=== PATIENT | male | born 1955 | race Caucasian/White ===

== ENCOUNTER 2025-04-29 23:59 | Inpatient (IN) | payer MEDICARE ==
[~2025-04-29] VITALS: Ht 188 cm; Wt 101.3 kg
[~2025-04-29 23:59] MED LIST: GINKOBA PO; HORNY GOAT WEED PO; VITAMIN A10000 UNI2 PO; VITAMIN B PO; VITAMIN D PO
[2025-04-30] VITALS (7 sets, daily range): BP systolic 151–184; BP diastolic 101–133
[2025-04-30 00:44] LABS: BASOPHILS ABSOLUTE AUTO 0.06 K/mm3 (0.00-0.23); BASOPHILS PERCENT AUTO 1 % (0-2); EOSINOPHILS ABSOLUTE AUTO 0.33 K/mm3 (0.00-0.68); EOSINOPHILS PERCENT AUTO 5 % (0-6); Hematocrit 46.1 % (37.0-53.0); Hemoglobin 16.3 g/dL (13.5-17.5); IMMATURE GRAN ABSOLUTE AUTO 0.03 K/mm3 (0.00-0.10); IMMATURE GRAN PERCENT AUTO 0 % (0-1); LYMPHOCYTES ABSOLUTE AUTO 1.37 K/mm3 (0.84-5.20); LYMPHOCYTES PERCENT AUTO 20 % (21-46); MONOCYTES ABSOLUTE AUTO 0.77 K/mm3 (0.16-1.47); MONOCYTES PERCENT AUTO 11 % (4-13); Mean Corpuscular HGB Conc 35.4 g/dL (31.5-36.5); Mean Corpuscular Volume 90 fL (80-100); NEUTROPHILS ABSOLUTE AUTO 4.20 K/mm3 (1.96-9.15); NEUTROPHILS PERCENT AUTO 62 % (41-73); NRBC ABSOLUTE 0.00 K/mm3 (0.00-0.02); NRBC Auto 0.0 /100 WBC (0.0-0.2); Platelet Count 231 K/mm3 (150-400); RDW Coefficient Variation 12.3 % (11.7-14.2); RDW Standard Deviation 40.8 fL (35.1-46.3)
[2025-04-30] MEDS ORDERED: NiCARdipine HCL 1,000 MCG/5 ML SYR ONE (00:53)
[2025-04-30] MEDS ORDERED: NS 1,000 ML IV ONE ×2 (00:53→00:55)
[2025-04-30] MEDS ORDERED: NS 250 ML IV ONE (00:53)
[2025-04-30] MEDS ORDERED: FentaNYL Citrate 50 MCG/ML 2 ML Injection ONE (00:55)
[2025-04-30] MEDS ORDERED: Midazolam HCl 1MG / ML 2ML Vial ONE (00:55)
[2025-04-30] MEDS ORDERED: Phenylephrine HCl 100 MCG/ML-NS 10MLSYR (1MG/10ML) ONE (00:56)
[2025-04-30] MEDS ORDERED: Phenylephrine HCl 10mg/ml 1 ml Vial ONE (00:56)
[2025-04-30] MEDS ORDERED: Labetalol HCL 5 MG/ML 4ML Injection (Single Dose) ONE (01:05)
[2025-04-30 01:06] LABS: Alanine Aminotransfer (ALT/SGP 37.0 U/L (12-78); Albumin, Blood 4.0 g/dL (3.4-5.0); Albumin/Globulin Ratio 0.9 (0.8-1.8); Anion Gap 8.0 mmol/L (3-11); Aspartate Aminotrans (AST/SGOT 34.0 U/L (12-37); Bilirubin, Total 1.6 mg/dL (0.1-1.0); Blood Urea Nitrogen 15.0 mg/dL (8-24); CO2, Blood 27.0 mmol/L (21-32); Calcium, Blood 8.9 mg/dL (8.5-10.1); Chloride, Blood 103.0 mmol/L (98-108); Creatinine, Blood 0.86 mg/dL (0.60-1.20); Globulin, Blood 4.3 g/dL (2.2-4.0); Glucose, Blood 131.0 mg/dL (70-99); Potassium, Blood 3.4 mmol/L (3.5-5.5); Sodium, Blood 135.0 mmol/L (136-145); Total Protein, Blood 8.3 g/dL (6.4-8.2)
[2025-04-30] MEDS ORDERED: ERGO400 PO (01:56)
[2025-04-30] MEDS ORDERED: ZINC15 PO (01:56)
[2025-04-30] MEDS ORDERED: FLU VACC TS2025(65UP)/MF59C/PF 45 MCG/0.5 ML SYRINGE IM SCH (02:00)
[2025-04-30] MEDS ORDERED: Morphine Sulfate 4 MG/1 ML Injection IV PRN (02:00)
[2025-04-30] MEDS ORDERED: Ondansetron HCl 2 MG / ML 2ML Vial IV PRN (02:05)
[2025-04-30] MEDS ORDERED: Naloxone HCl 0.4MG / ML 1ML Vial IV PRN (02:05)
[2025-04-30 02:13] LABS: Anti-Xa UFH, PHA Monitoring <0.10 IU/mL; Prothrombin Time Results 11.3 Sec (9.7-11.5)
--- NOTE | 2025-04-30 03:00 | NUR ---
ARRIVAL TO PCU PT ARRIVED TO PCU ROOM 18 AT APPROX 0141 DIRECTLY FROM [employer] [facility] [employer]NAGER, ARRIVES AT BEDSIDE W/ PT. PT DOES NOT HAVE A PCP OR TAKE ANY HOME MEDICATION, HE IS RETIRED AND NORMALLY ACTIVE. HE SHARES W/ ME THAT HE RECENTLY ROOFED HIS WHOLE HOUSE. DENIES ANY DRUG OR ALCOHOL HX, SMOKED FOR A BRIEF TIME BACK IN HIGH [employer]. R RADIAL ACCESS SITE W/ TR BAND IN PLACE 8CC IN THE BAND. SITE FREE OF REDNESS, HEMATOMA, OR PAIN. HTN NOTED ON ARRIVAL. DENIES CHEST PAIN SINCE ARRIVING TO PCU. SATTING 95% ON RA. DENIES SOB, BREATHING EVEN AND UNLABORED. DR. LARA ROUNDED ON PATIENT. PLANS FOR ECHO IN THE AM PER CARDIOLOGY. HEPARIN GTT TO START AFTER TR BAND FULLY RECOVERED.
[2025-04-30] MEDS ORDERED: Dose Adjust by Pharmacy XX STA (04:53)
[2025-04-30] MEDS ORDERED: Heparin Sodium,Porcine/0.5 NS 500 ML IV SCH (04:55)
[2025-04-30 05:05] LABS: BASOPHILS ABSOLUTE AUTO 0.06 K/mm3 (0.00-0.23); BASOPHILS PERCENT AUTO 1 % (0-2); EOSINOPHILS ABSOLUTE AUTO 0.17 K/mm3 (0.00-0.68); EOSINOPHILS PERCENT AUTO 2 % (0-6); Hematocrit 43.5 % (37.0-53.0); Hemoglobin 15.2 g/dL (13.5-17.5); IMMATURE GRAN ABSOLUTE AUTO 0.02 K/mm3 (0.00-0.10); IMMATURE GRAN PERCENT AUTO 0 % (0-1); LYMPHOCYTES ABSOLUTE AUTO 1.27 K/mm3 (0.84-5.20); LYMPHOCYTES PERCENT AUTO 16 % (21-46); MONOCYTES ABSOLUTE AUTO 0.77 K/mm3 (0.16-1.47); MONOCYTES PERCENT AUTO 10 % (4-13); Mean Corpuscular HGB Conc 34.9 g/dL (31.5-36.5); Mean Corpuscular Volume 93 fL (80-100); NEUTROPHILS ABSOLUTE AUTO 5.85 K/mm3 (1.96-9.15); NEUTROPHILS PERCENT AUTO 72 % (41-73); NRBC ABSOLUTE 0.00 K/mm3 (0.00-0.02); NRBC Auto 0.0 /100 WBC (0.0-0.2); Platelet Count 210 K/mm3 (150-400); RDW Coefficient Variation 12.3 % (11.7-14.2); RDW Standard Deviation 42.5 fL (35.1-46.3)
[2025-04-30 05:45] LABS: Alanine Aminotransfer (ALT/SGP 35 U/L (12-78); Albumin, Blood 3.6 g/dL (3.4-5.0); Albumin/Globulin Ratio 1.0 (0.8-1.8); Anion Gap 6 mmol/L (3-11); Aspartate Aminotrans (AST/SGOT 82 U/L (12-37); Bilirubin, Total 1.5 mg/dL (0.1-1.0); Blood Urea Nitrogen 14 mg/dL (8-24); CHOL/HDL RATIO 3.5; CO2, Blood 30 mmol/L (21-32); Calcium, Blood 8.6 mg/dL (8.5-10.1); Chloride, Blood 102 mmol/L (98-108); Cholesterol 155 mg/dL (50-200); Creatinine, Blood 0.84 mg/dL (0.60-1.20); Globulin, Blood 3.6 g/dL (2.2-4.0); Glucose, Blood 141 mg/dL (70-99); HDL Cholesterol 44 mg/dL (>39); LDL/HDL RATIO 2.3; Low Density Lipoprotein Chol 100 mg/dL (0-110); Magnesium, Blood 2.4 mg/dL (1.6-2.4); Potassium, Blood 3.6 mmol/L (3.5-5.5); Sodium, Blood 134 mmol/L (136-145); Thyroid Stimulating Hormone 1.640 uIU/mL (0.360-4.800); Total Protein, Blood 7.2 g/dL (6.4-8.2); Triglycerides 53 mg/dL (30-160); Very Low Density Lipoprot Chol 10 mg/dL (6-32)
--- NOTE | 2025-04-30 05:48 | NUR ---
SHIFT SUMMARY PT REMAINS A&OX4 ABLE TO MAKE NEEDS KNOWN. TR BAND FULLY RECOVERED AT [address] PULSE PRESENT, SITE FREE OF REDNESS, SWELLING, OR PAIN. PT DID REPORT CHEST "PRESSURE" OF 2 ON A SCALE OF 0 TO 10. MEDICATED PER EMAR, PT NOW REPORTING THIS PRESSURE HAS RESOLVED. TELE IN PLACE SHOWING AFLUTTER AT A RATE OF 50-70S, PT DID HOWEVER DROP TO A RATE OF 39 FOR FOUR BEATS, HE WAS ASYPMTOMATIC W/ THIS. HEPARIN GTT INFUSING PER EMAR. VOIDING IN URINAL W/O DIFFICULTY. DENIES ANY NEEDS AT THIS TIME. BED IN LOWEST POSTION, CALL LIGHT IN REACH. WILL REPORT TO ONCOMING RN.
[2025-04-30] MEDS ORDERED: ASPI81CH PO (13:30)
[2025-04-30] MEDS ORDERED: ELIQUIS5 M2 PO (13:30)
[2025-04-30] MEDS ORDERED: METO50ER PO (13:31)
[2025-04-30] MEDS ORDERED: LOSA50 PO (13:31)
[2025-04-30] MEDS ORDERED: ROSUVASTATIN CA20 MG PO (13:31)
--- NOTE | 2025-04-30 14:00 | NUR ---
PT IS A&Ox4 AND ABLE TO MAKE NEEDS KNOWN. HE IS ON RA W/O2 SATS > 92%. HE IS INDEPENDENT WITH AMBULATION. PT DISCHARGING HOME W/ AND ALL PERSONAL BELONGINGS.
== END 2025-04-30 14:13 | disposition home or self-care (01) | DRG 281 ==
LOC: ER 23:59 → ICUE 04-30 01:06 → PCU 04-30 01:06
PROVIDERS: Internal Medicine Interventional Cardiology; Physician Assistant; ADMIT Student in an Organized Health Care Education/Training Program
PROC: B2111ZZ Fluoroscopy of Multiple Coronary Arteries using Low Osmolar Contrast (ICD-10-PCS; principal; 2025-04-30)
DX: I21.29 ST elevation (STEMI) myocardial infarction involving other sites (principal); I48.92 Unspecified atrial flutter; I10 Essential (primary) hypertension; I49.3 Ventricular premature depolarization; I48.0 Paroxysmal atrial fibrillation; E87.6 Hypokalemia; I25.10 Atherosclerotic heart disease of native coronary artery without angina pectoris; Z88.0 Allergy status to penicillin; Z88.8 Allergy status to other drugs, medicaments and biological substances
CPT/HCPCS: 36415; 71045; 76937; 80053; 80061; 83036; 83690; 83735; 84443; 84484; 85025; 85520; 85610; 85730; 93005; 93010; 93454; 99152; 99153; 99285-25; A9270; C1769; C1887; C1894; C8929; J0461; J1644; J2250; J2371; J3010; J3246; J7030; J7050; Q9957; Q9967